=== PATIENT | male | born 1990 | race Caucasian/White ===

== ENCOUNTER 2019-05-25 20:51 | Emergency (ER) | payer SELFPAY ==
[~2019-05-25] VITALS: Ht 195.6 cm; Wt 102.1 kg
[2019-05-25 20:53] VITALS: Ht 195.6 cm; Wt 102.1 kg
[2019-05-25 21:59] VITALS: BP 154/77
== END 2019-05-25 21:59 | disposition other institution (70) ==
LOC: ED 20:51
DX: R51 Headache (principal); Z13.89 Encounter for screening for other disorder; V43.52XA Car driver injured in collision with other type car in traffic accident, initial encounter; Y93.I9 Activity, other involving external motion; Y92.488 Other paved roadways as the place of occurrence of the external cause; Y99.8 Other external cause status

== ENCOUNTER 2019-05-25 20:51 | Emergency (ER) | payer OTHER | END 2019-05-25 21:59 | disposition other institution (70) | LOC: ED 20:51 | DX: Z02.89 Encounter for other administrative examinations (principal) ==